=== PATIENT | female | born 1965 | race African-American/Black ===

== ENCOUNTER 2019-03-14 16:23 | Observation (INO) ==
[2019-03-14] MEDS ORDERED: ONDANSETRON 4 MG/2 ML VIAL IV PRN (20:03)
[2019-03-14] MEDS ORDERED: DEXTROSE 50% 25 GM/50 ML VIAL IV PRN ×2 (20:03)
[2019-03-14] MEDS ORDERED: MAGNESIUM SULF RIDER 2 GM in PREMIX 1 EACH IV PRN (20:03)
[2019-03-14] MEDS ORDERED: MAGNESIUM SULF RIDER 4 GM in PREMIX 1 EACH IV PRN (20:03)
[2019-03-14] MEDS ORDERED: ACETAMINOPHEN 325 MG TABLET PO PRN (20:03)
[2019-03-14] MEDS ORDERED: GLUCAGON 1 MG VIAL IM PRN ×2 (20:03)
[2019-03-14] MEDS: INSULIN LISPRO 100 UNIT/ML SUBCUT SCH (21:40)
[2019-03-14 23:21] LABS: Troponin I 0.032 NG/ML (0.00-0.045)
[2019-03-15 05:05] LABS: Basophils % 0.9 % (0.0-0.8); Eosinophils # 0.1 10*3/uL (0.0-0.87); Eosinophils % 1.4 % (0.00-10.9); Hematocrit 40.3 VOL% (35.7-47.0); Hemoglobin 13.4 GM/DL (12.0-16.0); Lymphocytes # 1.9 10*3/uL (1.4-4.0); Lymphocytes % 43.7 % (21.3-54.2); Mean Corpuscular HGB Conc 33.3 GM/DL (32-36); Mean Corpuscular Volume 90.4 FL (87-102); Mean Platelet Volume 11.3 FL (9.6-12.0); Monocytes % 12.3 % (1.7-12.7); Neutrophils % 41.7 % (38.7-73.9); Platelet Count 268 T/CUMM (130-400); Red Blood Count 4.46 MC/CUMM (3.8-5.5); Red Cell Distribution Width 12.3 % (9.3-17.3); White Blood Count 4.2 T/CUMM (4-12)
[2019-03-15 05:25] LABS: Troponin I 0.035 NG/ML (0.00-0.045)
[2019-03-15 05:32] LABS: Calcium 9.1 MG/DL (8.5-10.1); Risk Ratio 2.65; Thyroid Stimulating Hormone 1.7 uIU/ml (0.358-3.74)
[2019-03-15] MEDS ORDERED: ENOXAPARIN 40 MG/0.4 ML SYRINGE SUBCUT SCH (09:00)
[2019-03-15] MEDS ORDERED: ASPIRIN CHEW 81 MG TABLET PO SCH (09:00)
[2019-03-15] MEDS ORDERED: PANTOPRAZOLE 40 MG TABLET PO SCH (09:00)
[2019-03-15] MEDS ORDERED: LISINOPRIL/HCTZ 20-12.5 MG TABLET PO SCH (09:00)
[2019-03-15] MEDS: INSULIN LISPRO 100 UNIT/ML SUBCUT SCH ×3 (09:38→16:56)
[2019-03-15 11:44] VITALS: BP 102/51
[2019-03-17] MEDS ORDERED: ERGOCALCIFEROL 50,000 UNIT CAPSULE PO SCH (09:00)
== END 2019-03-15 17:10 | disposition home or self-care (01) ==
LOC: N.TELES → SUATTDRO 17:59
PROVIDERS: ADMIT Internal Medicine; ATTEND Internal Medicine